=== PATIENT | male | born 1960 | race Caucasian/White ===

== ENCOUNTER 2019-08-17 21:37 | Emergency (ER) | payer OTHER ==
[2019-08-17 21:49] VITALS: BP 128/95; PULSE 97; TEMP 98.6; BMI 36.5
[2019-08-17] MEDS ORDERED: OXYMETAZOLINE 0.05% NASAL SOLUTION 15 ML BOTTLE NS ONE ×2 (21:55→21:59)
[2019-08-17] MEDS ORDERED: PSEUDOEPHEDRINE HCL 30 MG TABLET ONE (21:59)
[2019-08-17] MEDS ORDERED: PSEUDOEPHEDRINE HCL 60 MG TABLET PO ONE (22:00)
--- NOTE | 2019-08-17 22:35 | PDOC ---
Documentation entered by Emily Jackson SCRIBE, acting as scribe for Elliot Ojeda MD. Elliot Ojeda MD: This documentation has been prepared by the frankiibe, Emily Jackson SCRIBE, under my direction and personally reviewed by me in its entirety. I confirm that the documentation accurately reflects all work, treatment, procedures, and medical decision making performed by me. History of Present Illness - General Chief Complaint: Pain, Acute Stated Complaint: SINUS INFECTION History Source: Patient Exam Limitations: No Limitations - History of Present Illness Initial Comments: 08/17/19 22:16 The patient is a 59-year-old male with a past medical history significant for HTN who presents to the emergency department with a sinus infection. The patient presents with 1 and a half months of sinus infection symptoms of nasal congestion, teeth pain, eye pain, and sinus congestion. The patient reports following up with doctors for the symptoms. The patient reports the first time he was prescribed Prednisone and antibiotics for 1 week, with improvement of the symptoms for a week, following the symptoms returned. The patient reports following up an urgent care, where was prescribed 4mg of Prednisone 4/day and antibiotics for a week. The patient reports following up with an ENT doctor who suctioned and swabbed him, prescribed the patient prednisone for 8 day. The patient reports his last dose was yesterday morning. The patient reports last night he had difficulty falling asleep, secondary to the congestions. The patient reports taking Mucinex, Sudafed, and Advil, without relief. Denies fever or chills. Past History - Past Medical History Allergies/Adverse Reactions: Allergies Allergy/AdvReac Type Severity Reaction Status Date / Time No Known Drug Allergies Allergy Verified 05/17/12 12:01 Home Medications: Ambulatory Orders Aspirin [Ecotrin] 81 mg PO DAILY 08/17/19 Atorvastatin Ca [Lipitor] 40 mg PO DAILY 08/17/19 Hydrochlorothiazide [Hctz -] 12.5 mg PO DAILY 08/17/19 Lisinopril [Prinivil] 10 mg PO DAILY 08/17/19 Metformin HCl [Glucophage] 500 mg PO DAILY 08/17/19 Pseudoephedrine HCl [Pseudoephedrine ER] 120 mg PO BID PRN #12 tablet.er Anemia: No Asthma: No Cancer: No Cardiac Disorders: No CVA: No COPD: No CHF: No Dementia: No Diabetes: No GI Disorders: Yes (GERD-NO MEDS) Disorders: No HTN: Yes Hypercholesterolemia: Yes Liver Disease: No Seizures: No Thyroid Disease: No - Surgical History Abdominal Surgery: No Appendectomy: Yes ( CHILD) Cardiac Surgery: No Cholecystectomy: No Lung Surgery: No Neurologic Surgery: No Orthopedic Surgery: No - Psycho Social/Smoking Cessation Hx Smoking History: Current every day smoker Have you smoked in the past 12 months: Yes Number of Cigarettes Smoked Daily: 15 Hx Alcohol Use: No Drug/Substance Use Hx: No Substance Use Type: None Hx Substance Use Treatment: No Review of Systems - Review of Systems Able to Perform ROS?: Yes Comments:: 08/17/19 22:16 Constitutional - Pt denies Fever, Chills, weakness, HEENT: +eye pain, sinus pressure, nasal congestion. denies vision changes, sore throat Respiratory: Denies cough, sob, hemoptysis Cardiac: denies chest pain, palpitations, light headedness, leg swelling Abd/GI: denies abd pain, nausea, vomiting, blood per rectum, melena, diarrhea : denies dysuria, frequency, discharge Musculskelatal - denies back pain, joint swelling skin - denies bruising, erythema, rash neurological: denies headache, numbness, focal weakness, tingling, ataxia, weakness hematologic: denies anemia, easy bruising, easy bleeding. *Physical Exam - Vital Signs Last Vital Signs Temp Pulse Resp BP Pulse Ox 98.6 F 97 H 18 128/95 96 08/17/19 21:45 08/17/19 21:45 08/17/19 21:45 08/17/19 21:45 08/17/19 21:45 - Physical Exam 08/17/19 22:17 CONSTITUTIONAL: Well-appearing; well-nourished; in no apparent distress HEAD: Normocephalic; atraumatic EYES: PERRL; EOM intact ENMT: +Tenderness over the frontal and maxillary sinus. External appears normal NECK: Supple; non-tender EXT: Normal ROM in all four extremities; non-tender SKIN: Warm, dry, no rash. Medical Decision Making - Medical Decision Making 08/17/19 22:34 recurrent sinusitis s/p two courses of abx without improvement. i do not think it is worthwhile to give a third course. Trial of decongestants. PCP fu for continuing care Discharge - Discharge Information Problems reviewed: Yes Clinical Impression/Diagnosis: Sinusitis Qualifiers: Sinusitis location: unspecified location Chronicity: acute Recurrence: recurrent Qualified Code(s): J01.91 - Acute recurrent sinusitis, unspecified Condition: Stable - Additional Discharge Information Prescriptions: Pseudoephedrine HCl [Pseudoephedrine ER] 120 mg PO BID PRN #12 tablet.er PRN Reason: congestion - Follow up/Referral - Patient Discharge Instructions Patient Printed Discharge Instructions: DI for Sinusitis - Post Discharge Activity
== END 2019-08-17 22:48 | disposition home or self-care (01) ==
LOC: FER 21:37
DX: J01.91 Acute recurrent sinusitis, unspecified (principal); F17.210 Nicotine dependence, cigarettes, uncomplicated; E78.00 Pure hypercholesterolemia, unspecified; K21.9 Gastro-esophageal reflux disease without esophagitis; I10 Essential (primary) hypertension
CPT/HCPCS: 99281-25